=== PATIENT | male | born 1980 | race American Indian/Alaskan Native ===

== ENCOUNTER 2021-08-25 08:03 | Emergency (ER) | payer MEDICARE ==
[2021-08-25] MEDS ORDERED: dexAMETHasone 4 MG/ML VIAL IM ONE (09:35)
[2021-08-25] MEDS ORDERED: IBUPROFEN 800 MG TAB PO ONE (09:35)
--- NOTE | 2021-08-25 09:37 | Emergency Department Report ---
ED General Adult HPI - General Chief complaint: Extremity Problem,Nontraumatic Stated complaint: GOUT PUI?: No Time Seen by Provider: 08/25/21 09:25 Source: patient Mode of arrival: Ambulatory Limitations: No Limitations - History of Present Illness Initial comments: 41 yo comes to er with r great toe pain- he has a/c gout no trauma no cp no sob no abd pain no fever or chills -: Sudden, hour(s) Location: lower extremity Severity scale (0 -10): 10 Quality: burning, stabbing, aching Consistency: constant Improves with: none Worsens with: none Associated Symptoms: denies other symptoms. denies: confusion, chest pain, cough, diaphoresis, fever/chills, headaches, loss of appetite, malaise, nausea/vomiting, rash, seizure, shortness of breath, syncope, weakness Treatments Prior to Arrival: none - Related Data Previous Rx's Medication Instructions Recorded Last Taken Type Colchicine 0.6 mg PO DAILY #11 08/25/21 Unknown Rx Ibuprofen [Motrin] 800 mg PO Q8HR PRN #30 tablet 08/25/21 Unknown Rx Allergies Allergy/AdvReac Type Severity Reaction Status Date / Time No Known Allergies Allergy Verified 08/25/21 09:41 ED Review of Systems ROS: Stated complaint: GOUT Other details as noted in HPI Comment: All other systems reviewed and negative ED Past Medical Hx - Past Medical History Previous Medical History?: Yes Hx Hypertension: Yes Hx Heart Attack/AMI: Yes Hx Congestive Heart Failure: Yes Hx Arthritis: Yes (gout) Additional medical history: hld; has defibrillator - Family History Family history: no significant - Social History Smoking Status: Never Smoker Substance Use Type: None - Medications Home Medications: Home Medications Medication Instructions Recorded Confirmed Last Taken Type Colchicine 0.6 mg PO DAILY #11 08/25/21 Unknown Rx Ibuprofen [Motrin] 800 mg PO Q8HR PRN #30 tablet 08/25/21 Unknown Rx ED Physical Exam - General Limitations: No Limitations General appearance: alert, in no apparent distress - Head Head exam: Present: atraumatic, normocephalic - Eye Eye exam: Present: normal appearance - ENT ENT exam: Present: mucous membranes moist - Neck Neck exam: Present: normal inspection - Respiratory Respiratory exam: Present: normal lung sounds bilaterally. Absent: respiratory distress - Cardiovascular Cardiovascular Exam: Present: regular rate, normal rhythm. Absent: systolic murmur, diastolic murmur, rubs, gallop - GI/Abdominal GI/Abdominal exam: Present: soft, normal bowel sounds - Rectal Rectal exam: Present: deferred - Extremities Exam Extremities exam: Present: normal inspection - Back Exam Back exam: Present: normal inspection - Neurological Exam Neurological exam: Present: alert, oriented X3 - Psychiatric Psychiatric exam: Present: normal affect, normal mood - Skin Skin exam: Present: warm, dry, intact, normal color. Absent: rash ED Course Vital Signs 08/25/21 09:14 Temperature 98.3 F Pulse Rate 72 Respiratory 18 Rate Blood Pressure 150/82 O2 Sat by Pulse 98 Oximetry - Reevaluation(s) Reevaluation #1: 08/25/21 10:26 can not tell me what his home meds are and is not at home ED Medical Decision Making - Medical Decision Making Vital Signs 08/25/21 09:14 Temperature 98.3 F Pulse Rate 72 Respiratory 18 Rate Blood Pressure 150/82 O2 Sat by Pulse 98 Oximetry right great toe redness and pain a/c hx gout on no gout meds ambulatory with limp to ER medicated in ER for pain dc home with dc plan of care including diet/activity/meds and follow up. Pt verbalizes understanding of plan of care. - Differential Diagnosis GOUT Critical care attestation.: If time is entered above; I have spent that time in minutes in the direct care of this critically ill patient, excluding procedure time. ED Disposition Clinical Impression: Gout flare Qualifiers: Gout site: foot Gout etiology: unspecified cause Laterality: left Qualified Code(s): M10.9 - Gout, unspecified Disposition: 01 HOME / SELF CARE / HOMELESS Is pt being admited?: No Does the pt Need Aspirin: No Condition: Stable Instructions: Low-Purine Eating Plan Additional Instructions: FOLLOW UP WITH PCP REFERRAL BELOW AVOID ALCOHOL AND RED MEAT MEDS ORDERED TODAY Prescriptions: Colchicine 0.6 mg PO DAILY #11 Ibuprofen [Motrin] 800 mg PO Q8HR PRN #30 tablet PRN Reason: Pain, Moderate (4-6) Referrals: MONISHA FISHER MD [Staff Physician] - 3-5 Days Time of Disposition: 09:37
[2021-08-25 10:25] VITALS: BP 157/88
== END 2021-08-25 10:23 | disposition home or self-care (01) ==
LOC: ED 08:03
DX: M10.9 Gout, unspecified (principal); I11.0 Hypertensive heart disease with heart failure; I50.9 Heart failure, unspecified
CPT/HCPCS: 96372; 99282; J1100

== ENCOUNTER 2021-10-09 07:50 | Emergency (ER) | payer MEDICARE ==
[2021-10-09 08:53] VITALS: BP 125/55
[2021-10-09] MEDS ORDERED: predniSONE 20 MG TAB PO ONE (09:37)
[2021-10-09] MEDS ORDERED: KETOROLAC 30 MG/1 ML INJ IM ONE (09:37)
[2021-10-09] MEDS ORDERED: COLCHICINE 0.6 MG TAB PO ONE ×2 (09:38→11:00)
--- NOTE | 2021-10-09 10:01 | Emergency Department Report ---
ED Extremity Problem HPI - General Chief complaint: Extremity Problem,Nontraumatic Stated complaint: GOUT Time Seen by Provider: 10/09/21 09:32 Source: patient Mode of arrival: Wheelchair Limitations: No Limitations - History of Present Illness Initial comments: 41-year-old black male with a past medical history of CVA presents to the emergency department for evaluation of right ankle pain and swelling. He states that he woke up with the pain and swelling yesterday and it has been getting worse since then. Denies injury or trauma but states that he does have a history of gout, and this pain is consistent with the pain and swelling that he has when he has a gout flare. He denies fever MD Complaint: extremity pain, extremity swelling, joint swelling -: Gradual, days(s) (1) Location: right, lower extremity (Ankle) History of Same: Yes -: No myalgia, No arthralgia, No fever, No associated dyspnea, No associated chest pain Radiation: none Severity scale (0 -10): 10 Quality: aching Consistency: constant Worsens with: weight bearing, palpation Associated Symptoms: denies: chest pain, shortness of breath, fever, myalgias, arthralgias, rash - Related Data Previous Rx's Medication Instructions Recorded Last Taken Type Colchicine 0.6 mg PO DAILY #11 08/25/21 Unknown Rx Ibuprofen [Motrin] 800 mg PO Q8HR PRN #30 tablet 08/25/21 Unknown Rx Colchicine 0.6 mg PO DAILY #15 tab 10/09/21 Unknown Rx Indomethacin [Indocin] 25 mg PO Q8H PRN #15 cap 10/09/21 Unknown Rx predniSONE [Deltasone] 50 mg PO QDAY #5 tab 10/09/21 Unknown Rx Allergies Allergy/AdvReac Type Severity Reaction Status Date / Time No Known Allergies Allergy Verified 08/25/21 09:41 ED Review of Systems ROS: Stated complaint: GOUT Other details as noted in HPI Comment: All other systems reviewed and negative Constitutional: denies: chills, fever Respiratory: denies: cough, shortness of breath, SOB with exertion, SOB at rest Cardiovascular: denies: chest pain, palpitations, dyspnea on exertion Gastrointestinal: denies: nausea, vomiting Musculoskeletal: joint swelling. denies: back pain Neurological: denies: headache, weakness ED Past Medical Hx - Past Medical History Hx Hypertension: Yes Hx Heart Attack/AMI: Yes Hx Congestive Heart Failure: Yes Hx Arthritis: Yes (gout) Additional medical history: hld; has defibrillator - Social History Smoking Status: Never Smoker Substance Use Type: None - Medications Home Medications: Home Medications Medication Instructions Recorded Confirmed Last Taken Type Colchicine 0.6 mg PO DAILY #11 08/25/21 Unknown Rx Ibuprofen [Motrin] 800 mg PO Q8HR PRN #30 tablet 08/25/21 Unknown Rx Colchicine 0.6 mg PO DAILY #15 tab 10/09/21 Unknown Rx Indomethacin [Indocin] 25 mg PO Q8H PRN #15 cap 10/09/21 Unknown Rx predniSONE [Deltasone] 50 mg PO QDAY #5 tab 10/09/21 Unknown Rx ED Physical Exam - General Limitations: No Limitations General appearance: alert, in no apparent distress - Head Head exam: Present: atraumatic, normocephalic - Eye Eye exam: Present: normal appearance. Absent: conjunctival injection - Neck Neck exam: Present: normal inspection - Respiratory Respiratory exam: Absent: respiratory distress - Cardiovascular Cardiovascular Exam: Present: regular rate, normal heart sounds - GI/Abdominal GI/Abdominal exam: Absent: distended - Expanded Lower Extremity Exam Right Ankle exam: Present: tenderness, swelling, erythema. Absent: normal inspection (Warm to touch), abrasion, laceration, ecchymosis, deformity, crepidus, dislocation Foot/Toe exam: Present: normal inspection Neuro vascular tendon exam: Present: no vascular compromise. Absent: pulse deficit, abnormal cap refill, motor deficit, sensory deficit, extremity cold to touch Gait: Positive: observed and limited by pain - Back Exam Back exam: Present: normal inspection - Neurological Exam Neurological exam: Present: alert, oriented X3 - Psychiatric Psychiatric exam: Present: normal affect, normal mood - Skin Skin exam: Present: warm, dry, intact, normal color ED Course Vital Signs 10/09/21 08:39 Temperature 98.2 F Pulse Rate 72 Respiratory 18 Rate Blood Pressure 125/55 [Right] O2 Sat by Pulse 98 Oximetry ED Medical Decision Making - Medical Decision Making 41-year-old black male with a past medical history of CVA presents to the emergency department for evaluation of right ankle pain and swelling. He states that he woke up with the pain and swelling yesterday and it has been getting worse since then. Denies injury or trauma but states that he does have a history of gout, and this pain is consistent with the pain and swelling that he has when he has a gout flare. He denies fever Right ankle erythematous, warm, swollen, and tender. Exam consistent with gout flare. Patient will be treated with anti-inflammatories steroids and colchicine. He is advised to take medication as prescribed. Decrease purine diet. And follow-up with primary care provider if no improvement or worsening symptoms. He verbalized understanding of and agreement with plan of care. Critical care attestation.: If time is entered above; I have spent that time in minutes in the direct care of this critically ill patient, excluding procedure time. ED Disposition Clinical Impression: Gout attack Qualifiers: Gout site: ankle Gout etiology: unspecified cause Laterality: right Qualified Code(s): M10.9 - Gout, unspecified Disposition: HOME / SELF CARE / HOMELESS Is pt being admited?: No Does the pt Need Aspirin: No Condition: Stable Instructions: Low-Purine Eating Plan Additional Instructions: Take medications as prescribed. Altered diet to decrease purine diet. Follow- up with primary care provider if no improvement or worsening symptoms. Return to the emergency department as needed. Prescriptions: Colchicine 0.6 mg PO DAILY #15 tab predniSONE [Deltasone] 50 mg PO QDAY #5 tab Indomethacin [Indocin] 25 mg PO Q8H PRN #15 cap PRN Reason: Pain, Moderate (4-6) Referrals: IRASEMA HENDERSON MD [Referring] - 3-5 Days Time of Disposition: 10:07
== END 2021-10-09 11:04 | disposition home or self-care (01) ==
LOC: ED 07:50
DX: M10.9 Gout, unspecified (principal); I11.0 Hypertensive heart disease with heart failure; I50.9 Heart failure, unspecified; M19.90 Unspecified osteoarthritis, unspecified site; Z79.899 Other long term (current) drug therapy
CPT/HCPCS: 96372; 99282; J1885